=== PATIENT | female | born 1965 | race Hispanic/Latino ===

== ENCOUNTER 2019-10-22 23:24 | Emergency (ER) | payer SELFPAY ==
[2019-10-23 00:48] VITALS: BP 136/78
--- NOTE | 2019-10-23 01:28 | XRay Report ---
LEFT WRIST 3 VIEWS INDICATION / CLINICAL INFORMATION: fall COMPARISON: None available. FINDINGS: BONES / JOINT(S): No acute fracture or subluxation. Mild degenerative change along the radial aspect of the carpus. SOFT TISSUES: No significant abnormality. ADDITIONAL FINDINGS: None. Signer Name: Kalyan Shipman MD Signed: 10/23/2019 1:24 AM Workstation Name: [id number]
--- NOTE | 2019-10-23 04:13 | Emergency Department Report ---
ED General Adult HPI - General Chief complaint: Extremity Injury, Upper Stated complaint: LEFT ARM AND HEAD PAIN Time Seen by Provider: 10/23/19 04:07 Source: patient Mode of arrival: Ambulatory Limitations: No Limitations - History of Present Illness Initial comments: 53-year-old female patient presents with complaints of left wrist pain and posterior head and neck pain after a trip and fall x yesterday. She denies any loss of consciousness, however states that she did have an episode of vomiting and is currently nauseous. She rates her headache as a 8/10 in severity. Pain in the neck worsens with rotation. She denies any numbness/tingling/weakness in her limbs, dizziness, vision changes, difficulty with speech/ambulation, or use of blood thinners. -: Sudden - Related Data Previous Rx's Medication Instructions Recorded Last Taken Type Diclofenac Sodium 50 mg PO TID PRN #21 tablet. 10/23/19 Unknown Rx methOCARBAMOL [Robaxin TAB] 1,500 mg PO Q8H PRN #22 tablet 10/23/19 Unknown Rx traMADoL [Ultram 50 MG tab] 50 mg PO Q6HR PRN #10 tablet 10/23/19 Unknown Rx Allergies Allergy/AdvReac Type Severity Reaction Status Date / Time No Known Allergies Allergy Unverified 10/23/19 00:42 ED Review of Systems ROS: Stated complaint: LEFT ARM AND HEAD PAIN Other details as noted in HPI Constitutional: denies: chills, diaphoresis, fever, malaise Respiratory: denies: cough, shortness of breath Cardiovascular: denies: chest pain, syncope Gastrointestinal: nausea, vomiting. denies: abdominal pain Musculoskeletal: joint swelling, arthralgia Skin: denies: rash, lesions, change in color Neurological: headache. denies: weakness, numbness, paresthesias, confusion, abnormal gait Hematological/Lymphatic: denies: easy bleeding ED Past Medical Hx - Past Medical History Previous Medical History?: Yes Hx COPD: Yes Additional medical history: Thyroid - Social History Smoking Status: Current Every Day Smoker Substance Use Type: None - Medications Home Medications: Home Medications Medication Instructions Recorded Confirmed Last Taken Type Diclofenac Sodium 50 mg PO TID PRN #21 tablet. 10/23/19 Unknown Rx methOCARBAMOL [Robaxin TAB] 1,500 mg PO Q8H PRN #22 tablet 10/23/19 Unknown Rx traMADoL [Ultram 50 MG tab] 50 mg PO Q6HR PRN #10 tablet 10/23/19 Unknown Rx ED Physical Exam - General Limitations: No Limitations General appearance: alert, in no apparent distress, obese - Head Head exam: Present: atraumatic, normocephalic - Eye Eye exam: Present: normal appearance, PERRL. Absent: scleral icterus - Neck Neck exam: Present: tenderness (Mid/upper vertebral tenderness noted), full ROM - Respiratory Respiratory exam: Present: normal lung sounds bilaterally. Absent: respiratory distress - Cardiovascular Cardiovascular Exam: Present: regular rate, normal rhythm. Absent: systolic murmur, diastolic murmur, rubs, gallop - Extremities Exam Extremities exam: Present: normal inspection, full ROM, other (Left wrist tenderness and decreased range of motion noted secondary to pain; left hand and fingers are neurovascularly intact; no skin changes noted; full range of motion of the fingers noted; no snuffbox tenderness ) - Back Exam Back exam: Present: full ROM - Neurological Exam Neurological exam: Present: alert, oriented X3, normal gait. Absent: motor sensory deficit - Expanded Neurological Exam Expanded Speech: Present: fluid speech Cerebellar function: Romberg: Normal Sensory exam: Upper Extremity Light Touch: Normal, Lower Extremity Light Touch: Normal Motor strength exam: RUE: 5, LUE: 5, RLE: 5, LLE: 5 - Psychiatric Psychiatric exam: Present: normal affect, normal mood - Skin Skin exam: Present: warm, dry, intact, normal color. Absent: rash ED Course Vital Signs 10/23/19 00:41 Temperature 97.9 F Pulse Rate 80 Respiratory 16 Rate Blood Pressure 136/78 O2 Sat by Pulse 93 Oximetry ED Medical Decision Making - Radiology Data Radiology results: report reviewed LEFT WRIST 3 VIEWS INDICATION / CLINICAL INFORMATION: fall COMPARISON: None available. FINDINGS: BONES / JOINT(S): No acute fracture or subluxation. Mild degenerative change along the radial aspect of the carpus. SOFT TISSUES: No significant abnormality. ADDITIONAL FINDINGS: None. CT cervical spine wo con INDICATION: upper pain after fall with head injury. TECHNIQUE: All CT scans at this location are performed using the following dose modulation technique: Automated exposure control. CONTRAST: None. COMPARISON: None available. FINDINGS: Satisfactory alignment without fracture. DDD is more localized at C6- C7 where changes are mild/moderate. Negative for significant bony stenosis. No significant soft tissue injury. IMPRESSION: DDD more localized C6-C7. CT head/brain wo con INDICATION: posterior pain after fall with head injury. TECHNIQUE: All CT scans at this location are performed using the following dose modulation technique: Automated exposure control. CONTRAST: None. COMPARISON: None available. FINDINGS: The ventricular system is appropriate in size and configuration without midline shift. Negative for mass, stroke or hemorrhage. Imaged portions the paranasal sinuses are clear. IMPRESSION: Negative CT brain without contrast. - Medical Decision Making Patient here with complaints of left wrist pain and headache/neck pain after a trip and fall yesterday. Neuro exam is normal. CT head and neck is negative for any acute findings. X-ray of left wrist is negative for acute findings. Pain is controlled, patient is well-appearing, and stable for discharge home. Given episode of vomiting with head injury, diagnosis of concussion given and patient educated on brain rest and signs and symptoms that should prompt immediate return to the emergency department. Patient verbalized understanding. Patient to follow-up with primary care in 2 days and orthopedics in 3 to 5 days. Critical care attestation.: If time is entered above; I have spent that time in minutes in the direct care of this critically ill patient, excluding procedure time. ED Disposition Clinical Impression: Left wrist sprain Head injury Qualifiers: Encounter type: initial encounter Qualified Code(s): S09.90XA - Unspecified injury of head, initial encounter Concussion Qualifiers: Encounter type: initial encounter Loss of consciousness presence/duration: without LOC Qualified Code(s): S06.0X0A - Concussion without loss of consciousness, initial encounter Neck muscle strain Qualifiers: Encounter type: initial encounter Qualified Code(s): S16.1XXA - Strain of muscle, fascia and tendon at neck level, initial encounter Disposition: DC-01 TO HOME OR SELFCARE Is pt being admited?: No Condition: Stable Instructions: Cervical Spine Strain (ED), Concussion (ED), Wrist Sprain (ED) Prescriptions: Diclofenac Sodium 50 mg PO TID PRN #21 tablet. PRN Reason: pain methOCARBAMOL [Robaxin TAB] 1,500 mg PO Q8H PRN #22 tablet PRN Reason: muscle spasm/tightness traMADoL [Ultram 50 MG tab] 50 mg PO Q6HR PRN #10 tablet PRN Reason: Pain , Severe (7-10) Referrals: [facility] [Provider Group] - 3-5 Days EMRE SAUCEDO MD [Staff Physician] - 3-5 Days
[2019-10-23] MEDS ORDERED: HYDROcodone/ACETAMINOPHEN 5-325 MG TAB PO ONE (04:36)
[2019-10-23] MEDS ORDERED: ONDANSETRON 4 MG ODT TAB PO ONE (04:38)
--- NOTE | 2019-10-23 05:19 | Cat Scan Report ---
CT head/brain wo con INDICATION: posterior pain after fall with head injury. TECHNIQUE: All CT scans at this location are performed using the following dose modulation technique: Automated exposure control. CONTRAST: None. COMPARISON: None available. FINDINGS: The ventricular system is appropriate in size and configuration without midline shift. Nega tive for mass, stroke or hemorrhage. Imaged portions the paranasal sinuses are clear. IMPRESSION: Negative CT brain without contrast. Signer Name: Kalyan Shipman MD Signed: 10/23/2019 5:15 AM Workstation Name: [id number]
--- NOTE | 2019-10-23 05:23 | Cat Scan Report ---
CT cervical spine wo con INDICATION: upper pain after fall with head injury. TECHNIQUE: All CT scans at this location are performed using the following dose modulation technique: Automated exposure control. CONTRAST: None. COMPARISON: None available. FINDINGS: Satisfactory alignment without fracture. DDD is more localized at C6-C7 where changes are m ild/moderate. Negative for significant bony stenosis. No significant soft tissue injury. IMPRESSION: DDD more localized C6-C7. Signer Name: Kalyan Shipman MD Signed: 10/23/2019 5:19 AM Workstation Name: [id number]
== END 2019-10-23 06:25 | disposition home or self-care (01) ==
LOC: ED 23:24
DX: S06.0X0A Concussion without loss of consciousness, initial encounter (principal); S16.1XXA Strain of muscle, fascia and tendon at neck level, initial encounter; S63.592A Other specified sprain of left wrist, initial encounter; X58.XXXA Exposure to other specified factors, initial encounter; Y93.89 Activity, other specified; Y92.89 Other specified places as the place of occurrence of the external cause; Y99.8 Other external cause status
CPT/HCPCS: 70450; 72125; Q0162